=== PATIENT | male | born 1995 | race Two or more races ===

== ENCOUNTER 2019-12-10 12:51 | Emergency (ER) | payer OTHER ==
[~2019-12-10] VITALS: Ht 167.6 cm; Wt 93.4 kg
--- NOTE | 2019-12-10 13:30 | NUR ---
[id number], FROM STREET, DRANK A FEW BOTTLE OF WINE, + ETOH SMELL. 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 DENIES SI/HI AT THIS TIME.
[2019-12-10 14:10] LABS: BASOPHILS # (AUTO) 0.1 /CMM (0.0-0.2); BASOPHILS % (AUTO) 0.8 % (0.0-2.0); EOSINOPHILS % (AUTO) 0.2 % (0.0-6.0); HEMATOCRIT 46 % (39-51); HEMOGLOBIN 15.4 g/dL (13.5-17.5); LYMPHOCYTES % (AUTO) 13.2 % (20.0-44.0); MEAN CORPUSCULAR HGB CONC 33 g/dl (31.0-36.0); MEAN CORPUSCULAR VOLUME 84 fL (80-96); MONOCYTES # (AUTO) 0.4 /CMM (0.1-1.30); NEUTROPHILS # (AUTO) 6.2 /CMM (1.8-8.9); NEUTROPHILS % (AUTO) 80.8 % (43.0-81.0); PLATELET COUNT (AUTO) 276 /CMM (150-450); RED BLOOD CELL COUNT(AUTO) 5.55 MIL/uL (4.5-6.0); WHITE BLOOD COUNT (AUTO) 7.7 K/uL (4.3-11.0)
[2019-12-10 14:21] LABS: CALCIUM, SERUM 9.1 mg/dL (8.5-10.1); CARBON DIOXIDE 29 mmol/L (21-32); CHLORIDE 99 mmol/L (98-107); GLUCOSE 96 mg/dL (74-106); SODIUM SERUM 140 mmol/L (136-145); UREA NITROGEN, BLOOD 7 mg/dL (7-18)
[2019-12-10 14:27] LABS: ALANINE AMINOTRANSFERASE 75 U/L (12-78); ALBUMIN 4.2 g/dL (3.4-5.0); ALCOHOL, BLOOD < 3 mg/dL (0-0); ALKALINE PHOSPHATASE 89 U/L (46-116); ASPARTATE AMINOTRANSFERASE 35 U/L (15-37); BILIRUBIN,DIRECT 0.2 mg/dL (0.0-0.2); BILIRUBIN,TOTAL 0.7 mg/dL (0.2-1.0); TOTAL PROTEIN, SERUM 8.2 g/dL (6.4-8.2)
[2019-12-10 14:33] LABS: SALICYLATE < 2.8 mg/dL (2.8-20.0)
--- NOTE | 2019-12-10 14:44 | NUR ---
Tana britt in [facility] - 12/10/19 at 1444 by SHADI PATIENT CANCELLED COVID TEST.
--- NOTE | 2019-12-10 14:44 | NUR ---
DR. ORTIZ CANCELLED COVID TEST.
[2019-12-10 15:13] LABS: APPEARANCE,URINE Clear (CLEAR); BILIRUBIN,URINE Negative (NEGATIVE); BLOOD, URINE Negative Ery/uL (NEGATIVE); COLOR,URINE Yellow (YELLOW); KETONES,URINE 40 (NEGATIVE); LEUKOCYTE ESTERASE ,URINE Negative (NEGATIVE); NITRITE, URINE Negative (NEGATIVE); PROTEIN,URINE Negative (NEGATIVE); UGLUCOSE Negative (NEGATIVE); UROBILINOGEN,URINE 0.2 EU/dL (0.2)
--- NOTE | 2019-12-10 15:49 | NUR ---
Patient is a 24 year-old male who was brought in by a rescue ambulance. Patient confirmed demographics including date of and home address. Patient reports that his brother Remberto called their primary physician as patient was having suicidal thoughts. Brother Remberto then proceeded to transport patient to [facility] ER. Patient reports a suicidal plan to jump off a building when he hears auditory hallucinations. Patient reports being diagnosed with schizoeffect disorder when he was 19 or 20 years-old. Patient reports not taking any medication at the moment. Patient would like voluntary treatment to [facility] as patient wants medications. Patient asked this SW to speak with brother about voluntary treatment. Brother Remberto can be contacted at [phone]. This to call patient's brother This SW contacted Carmelo at [facility]. Currently pending patient toxicology reports to fax clinicals .
--- NOTE | 2019-12-10 15:55 | NUR ---
This SW spoke with patient's brother Remberto. Remberto thanked this SW for providing the phone call update regarding the patient. Remberto asked this SW to provide an update on which [facility] Location patient will be transferred to. ERIC to inform RN about this request.
[2019-12-10 16:00] LABS: BACTERIA,URINE None seen /HPF (None Seen); RBC,URINE 0-2 /HPF (0-2); SQUAMOUS EPITHELIAL CELL,UR Few /HPF (None Seen); WBC,URINE 0-2 /HPF (0-3)
--- NOTE | 2019-12-10 19:33 | NUR ---
ASSUMED CARE FOR THIS PT. PT AAOX4, VSS, RESPIRATIONS EVEN AND UNLABORED ON RA W/ NAD NOTED. PT CONNECTED TO THE MONITOR AND POX. SITTER AT BEDSIDE FOR SAFETY
--- NOTE | 2019-12-10 19:54 | NUR ---
CLINICAL REFAXED TO [facility] FOR VOLUNTARY ADMISSION.
--- NOTE | 2019-12-10 19:55 | NUR ---
SPOKE TO KLEVER AT [facility] INTAKE, AWAITING MED CLEARANCE NOTE. RN FAXED MD NOTE.
--- NOTE | 2019-12-10 20:25 | NUR ---
TRANSFER INFO: PT ACCEPTED TO [facility] J[facility] SHAIKH BY DR DAMON, PLEASE GIVE REPORT TO KANDY ALCOCER AT [phone], ETA TO FOLLOW
--- NOTE | 2019-12-10 20:36 | NUR ---
CALLED [id number] FOR TRANSPORT TO [facility], RES#[id number], ETA TO FOLLOW
--- NOTE | 2019-12-10 22:00 | NUR ---
ETA [id number]
--- NOTE | 2019-12-10 22:24 | NUR ---
REPORT CALLED TO LOKI GAITAN. AWAITING TRANSPORT.
--- NOTE | 2019-12-10 22:55 | NUR ---
[facility] ETA [id number]
--- NOTE | 2019-12-11 00:32 | NUR ---
PT RESTING COMFORTABLY IN BED. VSS. NO ACUTE DISTRESS NOTED. PT CONNECTED TO THE MONITOR AND POX. CALL LIGHT WITHIN REACH. SITTER AT BEDSIDE FOR SAFETY.
[2019-12-11 00:44] VITALS: BP 128/68
--- NOTE | 2019-12-11 00:44 | NUR ---
TRANSPORT AT BEDSIDE REPORT GIVEN TO EMT TRANSPORT.
== END 2019-12-11 00:46 ==
LOC: ER 13:07
DX: F20.9 Schizophrenia, unspecified (principal); R45.851 Suicidal ideations
CPT/HCPCS: 36415; 80048; 80076; 80305; 80307; 80329; 81001; 85025; 99285; G0480; 81000-TC